=== PATIENT | female | born 1975 | race Caucasian/White ===

== ENCOUNTER 2024-08-29 06:48 | Emergency (ER) | payer SELFPAY ==
[2024-08-29 07:09] VITALS: BP 143/68; PULSE 85; RESP 15; TEMP 36.6; O2SAT 100
[2024-08-29 07:10] LABS: BEDSIDEPREGUCG Negative (Negative)
[2024-08-29 07:16] LABS: Basophils Percent Auto 0.4 % (0.2-1.2); Eosinophils Absolute Auto 0.1 K/mm3 (0-0.3); Eosinophils Percent Auto 1.3 % (0-4.4); Hematocrit 46.4 % (37.0-47.0); Hemoglobin 16.4 g/dL (12.0-15.0); Immature Granulocyte Absolute 0.02 K/mm3 (0.00-0.031); Immature Granulocyte Percent A 0.2 % (0-0.5); Lymphocytes Absolute Auto 2.15 K/mm3 (0.9-3.2); Lymphocytes Percent Auto 25.7 % (18.3-44.2); Mean Corpuscular HGB Conc 35.3 g/dl (32-36); Mean Corpuscular Hemoglobin 33.6 pg (26-34); Mean Corpuscular Volume 95.1 fl (80-100); Mean Platelet Volume 10.5 fl (7.4-10.4); Monocytes Absolute Auto 0.5 K/mm3 (0.1-0.6); Monocytes Percent Auto 6.5 % (2.6-8.5); Neutrophils Absolute Auto 5.5 K/mm3 (1.3-6.7); Neutrophils Percent Auto 65.9 % (45.5-73.1); Platelet Count Result 218 k/mm3 (150-375); Red Blood Count 4.88 M/mm3 (4.2-5.4); Red Cell Distribution Width 11.9 % (11.5-14.5); White Blood Count 8.4 K/mm3 (4.5-10.0)
[2024-08-29 07:23] LABS: Add Urine Microscopic? YES; Appearance Urine Cloudy (Clear); Bacteria Urine None Seen /hpf; Bilirubin Urine Negative (Negative); Blood Urine Negative (Negative); Color Urine Dark Yellow (Yellow); Glucose Urine UA Negative (Negative); Ketones Urine Trace mg/dL (Negative); Leukocyte Esterase Ur Trace LEU/UL (Negative); Nitrate Urine Negative (Negative); Non Pathogenic Casts 0-2; Protein Urine Negative (Negative); RBC Urine 0-2 /hpf (0-2); Specific Grav Ur 1.024 (1.001-1.035); Squamous Epithelial Cell Urine Occasional /hpf (Few); WBC Urine 0-5 /hpf (0-3)
[2024-08-29 07:26] LABS: Anion Gap 6 mmol/L (4-12); Blood Urea Nitrogen 14 mg/dL (7-17); Calcium 9.1 mg/dL (8.4-10.2); Carbon Dioxide 30 mmol/L (22-30); Chloride 103 mmol/L (98-107); Estimated CRCL calculation 60 ml/min; Estimated Glomerular Filt Rate > 60; Glucose 112 mg/dL (65-110); Potassium 3.7 mmol/L (3.4-5.0); Sodium 139 mmol/L (137-145)
[2024-08-29 07:27] LABS: Alanine Aminotransferase 22 U/L (6-35); Albumin Level 4.7 g/dL (3.5-5.1); Alkaline Phosphatase 77 U/L (38-126); Aspartate Amino Transferase 29 U/L (14-36); Bilirubin,Total 0.4 mg/dL (0.2-1.3); Lipase 210 U/L (23-300)
[2024-08-29] MEDS: KETOROLAC 15 MG/ML VIAL (*BKC) IV PUSH (07:40)
[2024-08-29] MEDS: FAMOTIDINE 20 MG/2 ML VIAL IV PUSH (07:40)
[2024-08-29] MEDS: MAG HYDROX/AL HYDROX/SIMETH 30 ML UDC PO (07:41)
[2024-08-29] MEDS: ONDANSETRON INJ 4 MG/2 ML VIAL IV PUSH (07:41)
[2024-08-29] MEDS: DICYCLOMINE HCL INJ 20 MG/2 ML VIAL IM (07:41)
[2024-08-29] MEDS: SODIUM CHLORIDE 0.9% IV 1,000 ML 999 ML IV CONT (07:41)
--- NOTE | 2024-08-29 08:07 | ED.GENADULT ---
HPI - General Adult General Chief complaint: Abdominal Pain Stated complaint: abdominal pain Time Seen by Provider: 08/29/24 07:01 History of Present Illness HPI narrative: This is a 48-year-old female presenting ED with chief complaint of nausea vomiting diarrhea. Patient has symptoms for the last 4 days. It is associated with a diffuse crampy abdominal pain that comes and goes. She denies fevers chills chest pain difficulty breathing, bloody emesis or bloody stools. Patient has issues of chronic abdominal discomfort has been diagnosed with IBS in the past. Patient has been taking omeprazole and Pepto with minimal relief. Related Data Allergies Allergy/AdvReac Type Severity Reaction Status Date / Time No Known Allergies Allergy Verified 08/29/24 06:52 Exam Narrative: APPEARANCE: No apparent distress. Head: atraumatic. EYES: EOMI, NOSE: Atraumatic NECK: Trachea midline RESPIRATORY: No increased rate of breathing CTAB CARDIOVASCULAR: RRR, ABDOMINAL: Soft nontender no guarding or rebound no CVA tenderness MUSCULOSKELETAl: No obvious deformities NEURO: Alert. Moving 4/4 extremities SKIN:: Warm, dry. Normal color PSYCHIATRIC: Normal affect Course Vital Signs Vital signs: Vital Signs Temperature 98 F 08/29/24 07:09 Pulse Rate 85 08/29/24 07:09 Respiratory Rate 15 08/29/24 07:09 Blood Pressure 143/68 H 08/29/24 07:09 Pulse Oximetry 100 08/29/24 07:09 Temperature 98 F 08/29/24 07:09 Pulse Rate 85 08/29/24 07:09 Respiratory Rate 15 08/29/24 07:09 Blood Pressure 143/68 H 08/29/24 07:09 Pulse Oximetry 100 08/29/24 07:09 Medical Decision Making [facility] Narrative Medical decision making narrative: -Course: 48-year-old female presenting for. Signs are stable. Laboratory studies normal. Abdominal exam is benign. Presentation most consistent gastroenteritis. Patient given symptomatic treatment with improvement. She will be discharged with Zofran and Bentyl. Given return precautions for fevers severe abdominal pain or intractable nausea and vomiting. -DDX includes but is not limited to: Gastroenteritis, irritable bowel syndrome, gastritis, colitis appendicitis -Co-morbidities complicating care: Chronic abdominal discomfort -Social determinants of health: Works as a DIRECTOR OF EVENTS. Patient has no insurance. Occasional alcohol, denies drug use -Independent interpretation of studies: Labs reviewed -Dx tests considered but not ordered: CT abdomen pelvis-benign abdominal exam with stable vital signs -Interventions: 1 L normal saline, Zofran Maalox Toradol Pepcid Bentyl -Shared decision making / Disposition: Discharge -RX Bentyl, Zofran Vital Signs Vital Signs: Vital Signs Temperature 98 F 08/29/24 07:09 Pulse Rate 85 08/29/24 07:09 Respiratory Rate 15 08/29/24 07:09 Blood Pressure 143/68 H 08/29/24 07:09 Pulse Oximetry 100 08/29/24 07:09 Temperature 98 F 08/29/24 07:09 Pulse Rate 85 08/29/24 07:09 Respiratory Rate 15 08/29/24 07:09 Blood Pressure 143/68 H 08/29/24 07:09 Pulse Oximetry 100 08/29/24 07:09 Lab Data 08/29/24 07:06 08/29/24 07:05 Labs: Lab Results 08/29/24 08/29/24 08/29/24 Range/Units 07:05 07:06 07:08 WBC 8.4 (4.5-10.0) K/mm3 RBC 4.88 (4.2-5.4) M/mm3 Hgb 16.4 H (12.0-15.0) g/dL Hct 46.4 (37.0-47.0) % MCV 95.1 (80-100) fl MCH 33.6 (26-34) pg MCHC 35.3 (32-36) g/dl RDW 11.9 (11.5-14.5) % Plt Count 218 (150-375) k/mm3 MPV 10.5 H (7.4-10.4) fl Immature Gran % (Auto) 0.2 (0-0.5) % Neut % (Auto) 65.9 (45.5-73.1) % Lymph % (Auto) 25.7 (18.3-44.2) % [place] % (Auto) 6.5 (2.6-8.5) % Eos % (Auto) 1.3 (0-4.4) % Baso % (Auto) 0.4 (0.2-1.2) % Lymph # (Auto) 2.15 (0.9-3.2) K/mm3 [place] # (Auto) 0.5 (0.1-0.6) K/mm3 Eos # (Auto) 0.1 (0-0.3) K/mm3 Baso # (Auto) 0.0 (0.0-0.1) K/mm3 Abs Immat Gran (auto)
[2024-08-29 08:28] VITALS: BP 122/81; PULSE 70; RESP 18; O2SAT 100
== END 2024-08-29 08:30 | disposition home or self-care (01) ==
PROVIDERS: Emergency Provider Emergency Medicine
DX: R11.2 Nausea with vomiting, unspecified (principal); R19.7 Diarrhea, unspecified
CPT/HCPCS: 36415; 80053; 81001; 81025; 83690; 85025; 96361; 96372; 96374; 96375; 99284; A9270; J0500; J1885; J2405; J7030